=== PATIENT | female | born 1945 | race Hispanic/Latino ===

== ENCOUNTER → 2019-05-13 | Outpatient (CLI) | payer MEDICARE ==
--- NOTE | 2019-05-13 11:46 | Diagnostic Imaging Report ---
Abdomen, 1 view. History: UTI. Findings: Air is scattered throughout nondilated small and large bowel. Retained stool is present throughout the colon. There are no masses or abnormal calcifications. Degenerative changes are present in the lumbar spine. IMPRESSION: Non-specific bowel gas pattern. Moderate retained stool. Signed by: Cesario Hernández on 05/13/2019 11:43 AM
--- NOTE | 2019-05-13 12:01 | Diagnostic Imaging Report ---
Renal ultrasound, 05/13/2019. History: UTI. Discussion: Transverse and longitudinal images of the kidneys were obtained demonstrating normal renal sizes and echogenicities. There is no evidence of hydronephrosis, mass, or shadowing calculus. A 1.7 x 1.5 x 1.8 cm oval anechoic structure is present in the left kidney centrally. A 6 mm nonshadowing echogenic focus is present in the cortex of the upper pole of the left kidney. The right kidney measures 8.0 cm and the left kidney measures 8.5 cm in length. Renal cortex measures 1.4 and 1.7 cm respectively. The urinary bladder is unremarkable. Bladder volume measures 50 mL. There is no evidence of free fluid. IMPRESSION: Possible small nonobstructing left renal calculus and simple left renal cyst. Otherwise unremarkable renal ultrasound. Signed by: Cesario Hernández on 05/13/2019 11:57 AM
== END ==
LOC: US 10:16
PROVIDERS: ATTEND Urology
DX: N39.0 Urinary tract infection, site not specified (principal)
CPT/HCPCS: 74018; 76770; 76857

== ENCOUNTER → 2019-07-01 | Outpatient (CLI) | payer MEDICARE ==
[~2019-07-01] MED LIST: IOPAMIDOL 370 MG/ML 200 ML INFUS..BTL INJ ONE; SODIUM CHLORIDE 0.9% 250ML 250 ML ONE
[2019-07-01 10:31] LABS: CREATININE, SERUM 0.93 mg/dL (0.57-1.11)
--- NOTE | 2019-07-01 13:00 | Diagnostic Imaging Report ---
CT of the abdomen and pelvis, without and with contrast. History: Hematuria. Comparison: Renal ultrasound from 05/13/2019. Technique: Multidetector CT scanning of the abdomen and pelvis was performed from the level of the lung bases to the inferior pubic rami before and after intravenous administration of contrast according to the CT urogram protocol. Coronal and sagittal multiplanar reformations were obtained. RADIATION DOSE: Total DLP: 856.57 mGy*cm Dose modulation, iterative reconstruction, and/or weight based adjustment of the mA/kV was utilized to reduce the radiation dose to as low as reasonably achievable. FINDINGS: The lung bases are demonstrate dependent density/atelectasis but are otherwise unremarkable. The liver is normal in size and attenuation without evidence for focal abnormality. The gallbladder is not visualized and may be contracted versus surgically absent. There is no biliary ductal dilatation. The stomach, spleen, pancreas, and right adrenal gland are unremarkable. There is nodular thickening of the left adrenal gland measuring up to 1.7 cm. Precontrast attenuation values are suggestive of a benign adenoma. The kidneys are normal in size and location and concentrate/excrete contrast material properly. Cortical scarring noted within the mid left kidney. Multiple hypodensities are identified within the left kidney, some of which are compatible with simple cysts and some of which are too small to definitively characterize but favored to represent simple cysts. The larger cyst measures 1.7 x 1.5 cm. There is no evidence for nephrolithiasis or solid enhancing mass. There is a single collecting system identified bilaterally. The left proximal and mid ureter are well opacified and appear unremarkable. The distal left ureter is only partially opacified but appears normal in caliber. The right proximal and distal ureter are opacified and appear unremarkable. The right middle ear ureter is suboptimally opacified but appears normal in caliber. There is mild circumferential wall thickening of the urinary bladder which may relate to underdistention. The urinary bladder is otherwise unremarkable. The uterus is surgically absent. No abnormal adnexal masses are identified. The abdominal aorta is normal course and caliber with after cirrhotic calcifications. The IVC is unremarkable. Please note evaluation the bowel is limited without the use of enteric contrast material. The visualized loops of small and large bowel demonstrate no evidence of obstruction or inflammation. There is no ascites or intraperitoneal free air. No abnormally enlarged lymph nodes are identified within the abdomen or pelvis. There is a small fat-containing umbilical hernia present. There are multilevel degenerative changes of the thoracolumbar spine. Mild compression deformities are noted within the T11 and L3 of unknown chronicity. There is no evidence for other acute fracture or destructive process. The extra perineal soft tissues are unremarkable. The extra perineal soft tissues are unremarkable. IMPRESSION: No acute abdominopelvic process identified, specifically no evidence for nephrolithiasis, obstructive uropathy, enhancing renal mass, or CT evident ureteral filling defect. Mild circumferential wall thickening of the urinary bladder related to underdistention. A cystitis could have a similar appearance. Signed by: Dr. Edgardo Ragland MD on 07/01/2019 12:57 PM
== END ==
LOC: CT 09:39
PROVIDERS: ATTEND Urology
DX: R31.21 Asymptomatic microscopic hematuria (principal); N20.0 Calculus of kidney
CPT/HCPCS: 36415; 74178; 82565; 84520; J7050; Q9967